=== PATIENT | female | born 1960 | race Hispanic/Latino ===

== ENCOUNTER 2020-12-16 15:38 | Emergency (ER) | payer OTHER ==
[2020-12-16] MEDS ORDERED: METOCLOPRAMIDE 10 MG/2 ML VIAL ONE (16:38)
[2020-12-16] MEDS ORDERED: DiphenhydrAMINE HCL 50 MG/ML VIAL ONE (16:39)
== END 2020-12-16 18:52 | disposition home or self-care (01) ==
LOC: EDH 15:38
DX: R51.9 Headache, unspecified (principal); R42 Dizziness and giddiness; H57.11 Ocular pain, right eye; M79.7 Fibromyalgia; F41.9 Anxiety disorder, unspecified
CPT/HCPCS: 70450; 96361; 96374; 96375; 99284; J1200; J2765; J7030

== ENCOUNTER 2021-08-05 15:36 | Emergency (ER) | payer OTHER, SELFPAY ==
[~2021-08-05] VITALS: Ht 162.6 cm; Wt 54.4 kg
[2021-08-05 17:15] LABS: BASOPHILS % (AUTO) 0.6 % (0.0-5.0); EOSINOPHILS % (AUTO) 0.6 % (0.0-8.0); LYMPHOCYTES % (AUTO) 27.2 % (21.0-51.0); MEAN CORPUSCULAR HEMOGLOBIN 31.3 pg (27.0-33.0); MEAN CORPUSCULAR HGB CONC 32.5 g/dL (32.0-36.0); MEAN CORPUSCULAR VOLUME 96.2 fL (79-99); MONOCYTES % (AUTO) 5.7 % (3.0-13.0); NEUTROPHILS % (AUTO) 65.6 % (40.0-77.0); PLATELET COUNT (AUTO) 347 K/uL (130-400); RED BLOOD CELL COUNT(AUTO) 4.16 MIL/uL (4.00-5.50); RED CELL DISTRIBUTION WIDTH 12.1 % (11.0-15.5); WHITE BLOOD COUNT (AUTO) 6.6 K/uL (4.8-10.8)
[2021-08-05 17:20] LABS: CREATININE 0.7 mg/dL (0.5-1.5)
[2021-08-05 17:25] LABS: ALBUMIN 4.6 g/dL (3.5-5.0); BILIRUBIN,TOTAL 0.4 mg/dL (0.2-1.0); TOTAL PROTEIN, SERUM 7.7 g/dL (6.0-8.3)
[2021-08-05 19:46] LABS: APPEARANCE,URINE Cloudy (CLEAR); BILIRUBIN,URINE Negative (NEGATIVE); COLOR,URINE Dark Yellow (YELLOW); GLUCOSE, URINE (UA) Negative (NEGATIVE); KETONES,URINE Negative (NEGATIVE); LEUKOCYTE ESTERASE ,URINE Trace (NEGATIVE); NITRATE,URINE Positive (NEGATIVE); OCCULT BLOOD,URINE Trace (NEGATIVE); PROTEIN,URINE Negative (NEGATIVE)
[2021-08-05 19:55] LABS: BACTERIA,URINE Rare /HPF (None Seen)
[2021-08-05 19:56] LABS: SQUAMOUS EPITHELIAL CELL,UR Few /HPF (0-2)
[2021-08-05] MEDS ORDERED: 0.9%NACL 1000ML 1,000 ML IV ONE (20:30)
[2021-08-05] MEDS ORDERED: DOXYCYCLINE 100MG IVPB (VIAL) IVPB ONE (20:30)
[2021-08-05] MEDS ORDERED: DICYCLOMINE HCL 20 MG TAB PO ONE (20:30)
[2021-08-05] MEDS ORDERED: 0.9% NACL 250ML IV ONE (20:30)
[2021-08-05] MEDS ORDERED: KETOROLAC 30MG VIAL (30MG/ML) IV ONE (20:30)
[2021-08-05] MEDS ORDERED: DOXYCYCLINE 100MG+NS 250ML IV ONE (20:30)
[2021-08-05] MEDS ORDERED: DICY20TA2 PO (21:39)
[2021-08-05] MEDS ORDERED: DOXY-336 PO (21:39)
[2021-08-05 22:13] VITALS: BP 122/73
== END 2021-08-05 22:27 | disposition home or self-care (01) ==
LOC: EDH 15:36
DX: N39.0 Urinary tract infection, site not specified (principal); F41.9 Anxiety disorder, unspecified; Z88.1 Allergy status to other antibiotic agents; Z88.2 Allergy status to sulfonamides; M79.7 Fibromyalgia; Z79.1 Long term (current) use of non-steroidal anti-inflammatories (NSAID)
CPT/HCPCS: 36415; 80053; 81001; 85025; 87088; 96365; 96366; 96375; 99284; J1885; J3490; J7030